=== PATIENT | male | born 1965 | race Caucasian/White ===

== ENCOUNTER 2017-04-02 16:54 | Emergency (ER) | payer SELFPAY ==
[2017-04-02 17:09] VITALS: BP 142/94
--- NOTE | 2017-04-02 17:18 | ERNOTE ---
ENT HPI Date of Service: 04/02/17 Presenting Symptoms: other - cough/sore throat Time Seen by Provider: 04/02/17 16:59 Source: patient Exam Limitations: no limitations - Immun/Allergies/Home Medications Immunizations: IMMUNIZATION HX Immunizations Up to Date Yes History of Influenza Vaccine No Hx Pneumococcal Vaccination No Allergies/Adverse Reactions: Allergies Allergy/AdvReac Type Severity Reaction Status Date / Time No Known Allergies Allergy Verified 04/02/17 17:02 Home Medications: HOME MEDICATIONS Albuterol Sulfate [Proair Hfa] 2 puff IH Q4H PRN #1 inhaler 04/02/17 [Last Taken Unknown] Azithromycin [Zithromax] 500 mg PO NOW #6 tab 04/02/17 [Last Taken Unknown] - History of Present Illness Narrative: Patient presents to the ED for cough. He relates that he has been sick for 2 weeks. He has been coughing with productive sputum. Has sore thrat with this. lso his eyes have been mattering in the mornings. He has some chest pain with cough only. No hemoptysis. Has felt feverish at home. Has not seen anyone else for this. Nasal congestion also. Severity: Present: moderate ENT Location: Present: other - cough/throat Prearrival Treatment: Present: no prearrival treatment Modifying Factors - Improves: Reports: nothing Modifying Factors - Worsens: Reports: nothing Associated Symptoms - ENT: Reports: malaise, cough, sore throat, nasal congestion/drainage. Denies: voice change, drooling, ear drainage Prior Treament: Denies: recently seen Review of Systems - Review of Systems Constitutional: Present: fatigue EYE: Present: see HPI ENT: Present: See HPI Respiratory: Present: cough Cardiology: Present: See HPI Gastrointestinal/Abdominal: Absent: abdominal pain Genitourinary: Absent: dysuria Skin: Absent: rash - Patient's Past Medical History Patient History - Medical: No pertinent hx Patient History - Cardiac/Respiratory: No pertinent hx Patient History - Cancer: No Hx of Cancer Patient History - Surgical Procedures: Appendectomy, Cholecystectomy, ENT, Orthopedic Patient History - Other: None - Family History Mother Family History - Medical: Family History - Cardiac/Respiratory: Myocardial Infarction Father Family History - Medical: - Social History Abuse History: No History of abuse Psych History: No pertinent hx Smoking Status: Current every day smoker Have you smoked in the past 12 months: Yes - 1 can/day Alcohol Use: occasionally - Immunizations Immunizations Up to Date: Yes Hx Pneumococcal Vaccination: No History of Influenza Vaccine: No Physical Exam - Physical Exam General Appearance: Present: alert, no apparent distress, other - harsh cough noted Head Exam: Present: normal inspection, no evidence of injury Eye Exam: PERRL: bilateral Ears, Nose, Throat: Present: normal ENT inspection, nasal congestion, pharyngeal erythema, other - No [employer] , RPA or epiglottitis. . Absent: pharyngeal swelling, tonsillar exudate, tonsillar swelling, dry mucous membranes Neck: Present: normal inspection, supple Respiratory: Present: no respiratory distress, no accessory muscle use, other - faint wheezes in the bases bilaterally. no distress Cardiovascular/Chest: Present: regular rate, rhythm, normal peripheral pulses Gastrointestinal/Abdominal: Present: normal bowel sounds, nontender, nondistended, soft Back Exam: Present: normal range of motion Extremity Exam: Present: normal range of motion Neurological Exam: Present: alert, no motor/sensory deficits Skin Exam: Present: normal color, warm/dry ED Progress - Results and Orders Patient's Lab Results:: I have reviewed the patient's lab results. - Vital Signs Patient's Vital Signs:: I have reviewed the patient's vital signs. Vital Signs: Vital Signs 04/02/17 04/02/17 16:59 17:08 Temperature 36.4 C L 36.4 C L Pulse Rate 89 89 Respiratory 17 17 Rate Blood Pressure 142/94 O2 Sat by Pulse 97 97 Oximetry - Progress/Reassessment Chief Complaint: Sore Throat Progress Note-Subjective: 04/02/17 17:51 Patient felt improved after neb. No wheezing on re-check. Sx c/w bronchitis. I offered him labs and x-ray but he declines this and wishes treatment. he understands risks and benefits of this approach. I disucssed warning signs and reasons to return as well as the need for close f/u. 04/02/17 17:52 Given the fact that he has had Sx for over 2 weeks will treat for atypicals. Departure Clinical Impression: Bronchitis - Departure Disposition: Home self-care Condition: Stable Instructions: Acute Bronchitis, [id number] Additional Instructions: Rest. FLuids. Medications as directed. Return if you change your mind about having the additional testing we discussed, if you develop trouble breathing or if your condition worsens or changes in any way. Follow-up with a doctor in 3 days for a re-check. Prescriptions: Albuterol Sulfate [Proair Hfa] 2 puff IH Q4H PRN #1 inhaler PRN Reason: Shortness Of Breath Azithromycin [Zithromax] 500 mg PO NOW #6 tab
[2017-04-02] MEDS ORDERED: ALBUTEROL SULFATE/IPRATROPIUM 3 ML NEBU IH ONE ×2 (17:21→17:40)
== END 2017-04-02 17:58 | disposition home or self-care (01) ==
LOC: ER 16:54
DX: F17.200 Nicotine dependence, unspecified, uncomplicated (principal); J40 Bronchitis, not specified as acute or chronic